=== PATIENT | female | born 1970 | race Caucasian/White ===

== ENCOUNTER → 2019-09-14 | Outpatient (CLI) | payer OTHER ==
[~2019-09-14] MED LIST: AMLO10TA8 PO; ASCO1CAP2 PO; CARV12.52 PO; CHOL10003 PO; CYCL-259 PO; FENO145T19 PO; GABA-827 PO; HYDR-3245 PO; IBUP-1222 PO; INSU100V14 SQ; MAGN420T PO; MELA10TA PO; VITA1CAP PO
[2019-09-14 11:46] LABS: MICROSCOPIC AUTO
[2019-09-14 11:47] LABS: BASOPHILS # (AUTO) 0.01 x10^3/uL (0-0.1); BASOPHILS % (AUTO) 0 % (0-1); EOSINOPHILS # (AUTO) 0.14 x10^3/uL (0-0.4); EOSINOPHILS % (AUTO) 3 % (1-7); LYMPHOCYTES # (AUTO) 1.79 x10^3/uL (1-3.4); LYMPHOCYTES % (AUTO) 35 % (22-44); MD NO; MEAN CORPUSCULAR HEMOGLOBIN 23.1 pg (27.0-34.8); MEAN CORPUSCULAR HGB CONC 31.7 g/dL (32.4-35.8); MEAN PLATELET VOLUME 7.9 fL (7.4-10.4); MONOCYTES # (AUTO) 0.45 x10^3/uL (0.2-0.8); MONOCYTES % (AUTO) 9 % (2-9); NEUTROPHILS # (AUTO) 2.69 x10^3/uL (1.8-6.8); NEUTROPHILS % (AUTO) 53 % (42-75); PLATELET COUNT 314 x10^3/uL (130-400); RED BLOOD COUNT 4.89 x10^6/uL (3.82-5.3); RED CELL DISTRIBUTION WIDTH 14.7 % (9.6-15.2)
[2019-09-14 11:54] LABS: ALBUMIN 3.2 g/dL (3.4-5.0); ANION GAP 8 mmol/L (5-15); CALCIUM 9.1 mg/dL (8.5-10.1); CHLORIDE 105 mmol/L (98-107)
[2019-09-14 11:59] LABS: ALANINE AMINOTRANSFERASE 37 U/L (12-78); ALKALINE PHOSPHATASE 43 U/L (45-117); BILIRUBIN,TOTAL 0.4 mg/dL (0.2-1.0); CREATININE 1.28 mg/dL (0.55-1.02); TOTAL PROTEIN 6.9 g/dL (6.4-8.2)
[2019-09-14 12:03] LABS: INTERNATIONAL NORMALIZED RATIO 0.91 (0.93-1.1); PROTHROMBIN TIME 9.6 Seconds (9.6-11.5)
== END | disposition home or self-care (01) ==
LOC: STAR 10:23
PROVIDERS: ATTEND Neurological Surgery
DX: Z01.810 Encounter for preprocedural cardiovascular examination (principal); Z01.811 Encounter for preprocedural respiratory examination; Z01.812 Encounter for preprocedural laboratory examination; M51.26 Other intervertebral disc displacement, lumbar region; M51.36 Other intervertebral disc degeneration, lumbar region; R79.1 Abnormal coagulation profile; R82.90 Unspecified abnormal findings in urine; R94.31 Abnormal electrocardiogram [ECG] [EKG]; M47.816 Spondylosis without myelopathy or radiculopathy, lumbar region
CPT/HCPCS: 36415; 71046; 72110; 80053; 81001; 85025; 85610; 85730; 93005

== ENCOUNTER 2019-09-24 09:56 | Inpatient (IN) | payer OTHER ==
[~2019-09-24] VITALS: Ht 180.3 cm; Wt 123.0 kg
[2019-09-24] MEDS ORDERED: PROPOFOL 50 ML ONE (10:34)
[2019-09-24] MEDS ORDERED: MIDAZOLAM 1 MG/ML, 2ML ONE (10:34)
[2019-09-24] MEDS ORDERED: FENTANYL PF 250 MCG/5ML ONE (10:34)
[2019-09-24] MEDS ORDERED: LACTATED RINGERS 1,000 ML IV SCH (10:40)
[2019-09-24 10:42] VITALS: BP 155/85
[2019-09-24] MEDS ORDERED: FURO20TA3 PO (10:47)
[2019-09-24] MEDS ORDERED: GABAPENTIN 300 MG CAPSULE PO ONE (11:00)
[2019-09-24] MEDS ORDERED: SCOPOLAMINE 1MG PATCH TD SCH (11:00)
[2019-09-24] MEDS ORDERED: CHLORHEXIDINE 15 ML UDC MM ONE (11:00)
[2019-09-24] MEDS ORDERED: ACETAMINOPHEN 500 MG TABLET PO ONE (11:00)
[2019-09-24] MEDS ORDERED: BUPIVACAINE/PF-EPI 0.5% 1:200K ONE (11:10)
[2019-09-24] MEDS ORDERED: BACITRACIN 50,000 UNIT ONE (11:10)
[2019-09-24 11:42] LABS: HCG UR SG 1.008 (1.003-1.030)
[2019-09-24] MEDS ORDERED: GLYCOPYRROLATE 0.2MG/1ML, 5ML ONE (11:49)
[2019-09-24] MEDS ORDERED: CEFAZOLIN 1,000 MG ONE (11:49)
[2019-09-24] MEDS ORDERED: DEXAMETHASONE 4 MG/ML, 1ML ONE (11:49)
[2019-09-24] MEDS ORDERED: ROCURONIUM 10 MG/ML,10ML ONE (11:49)
[2019-09-24] MEDS ORDERED: PHENYLEPHRINE 10 MG/ML ONE (11:49)
[2019-09-24] MEDS ORDERED: PROPOFOL 150 ML ONE (12:41)
[2019-09-24] MEDS ORDERED: KETOROLAC 30 MG/1 ML IV PRN (14:00)
[2019-09-24] MEDS ORDERED: OXYcodone 5 MG/5 ML ORAL.SOL UDC PO PRN (14:00)
[2019-09-24] MEDS ORDERED: MEPERIDINE/PF 25MG/0.5ML IVPush PRN (14:00)
[2019-09-24] MEDS ORDERED: HALOPERIDOL 5 MG/ML IV PRN (14:00)
[2019-09-24] MEDS ORDERED: DIPHENHYDRAMINE 50 MG/ML, 1ML IVPush PRN ×2 (14:00→14:30)
[2019-09-24] MEDS ORDERED: METHOCARBAMOL 1,000 MG in DEXTROSE 5% 100 ML IV PRN (14:00)
[2019-09-24] MEDS ORDERED: DIAZEPAM 5 MG/ML, 2ML ONE (14:12)
[2019-09-24] MEDS ORDERED: HYDROmorphone 1 MG/ML, 1ML INJ ONE (14:12)
[2019-09-24] MEDS ORDERED: FENTANYL PF 100 MCG/2ML ONE (14:12)
[2019-09-24] MEDS: FENTANYL PF 100 MCG/2ML IV PRN ×2 (14:13→14:24)
[2019-09-24] MEDS ORDERED: OXYcodone 5 MG/5 ML ORAL.SOL UDC ONE (14:13)
[2019-09-24] MEDS: DIAZEPAM 5 MG/ML, 2ML IVPush PRN ×2 (14:23→14:33)
[2019-09-24] MEDS ORDERED: LABETALOL 5MG/ML, 20ML IVPush PRN (14:30)
[2019-09-24] MEDS ORDERED: INSULIN ASPART SQ SCH (14:30)
[2019-09-24] MEDS: HYDROmorphone 1 MG/ML, 1ML INJ IVPush PRN ×2 (14:39→14:48)
[2019-09-24] MEDS ORDERED: LORazepam 2 MG/ML, 1ML ONE (14:58)
[2019-09-24] MEDS ORDERED: LORazepam 2 MG/ML, 1ML IVPush PRN (15:00)
[2019-09-24] MEDS: INSULIN REGULAR 100 UNITS/ML, 3ML VIAL SQ-INSULIN SCH ×2 (16:00→21:00)
[2019-09-24 16:37] VITALS: BP 162/93
[2019-09-24] MEDS: morphine SULFATE 10 MG/ML, 1ML IVPush PRN ×2 (16:54→20:27)
[2019-09-24] MEDS ORDERED: morphine SULFATE 10 MG/ML, 1ML ONE (17:17)
[2019-09-24] MEDS: GABAPENTIN 400 MG CAPSULE PO SCH ×2 (17:23→20:32)
[2019-09-24] MEDS: CYCLOBENZAPRINE 10 MG TABLET PO SCH ×2 (17:24→20:32)
[2019-09-24] MEDS ORDERED: OXYcodone IR 5MG TABLET PO PRN (17:30)
[2019-09-24] MEDS ORDERED: PROMETHAZINE 25 MG/ML, 1ML IM PRN (18:00)
[2019-09-24] MEDS ORDERED: MAGNESIUM HYDROXIDE 8%, 30ML UDC PO PRN (18:00)
[2019-09-24] MEDS ORDERED: SENNA/DOCUSATE TABLET PO PRN (18:00)
[2019-09-24] MEDS ORDERED: METHOCARBAMOL 750 MG TABLET PO PRN (18:00)
[2019-09-24] MEDS ORDERED: HOMEMED MC SCH (18:00)
[2019-09-24] MEDS: NS + 20MEQ KCL 1,000 ML IV SCH (18:08)
[2019-09-24] MEDS: HYDROcodone/APAP 10/325 MG TABLET PO PRN ×2 (18:14→22:53)
[2019-09-24 19:20] VITALS: BP 138/80
[2019-09-24] MEDS: CEFAZOLIN PMX 1GM/50ML 50 ML IVPB SCH (20:23)
[2019-09-24] MEDS: MAGNESIUM OXIDE 400 MG TABLET PO SCH (20:32)
[2019-09-24] MEDS: CARVEDILOL 12.5 MG TABLET PO SCH (20:32)
[2019-09-24] MEDS ORDERED: MELATONIN 5 MG TABLET PO SCH (21:00)
[2019-09-25 00:04] VITALS: BP 127/68
[2019-09-25] MEDS: morphine SULFATE 10 MG/ML, 1ML IVPush PRN ×3 (00:37→09:46)
[2019-09-25] MEDS: CEFAZOLIN PMX 1GM/50ML 50 ML IVPB SCH (03:56)
[2019-09-25] MEDS: HYDROcodone/APAP 10/325 MG TABLET PO PRN ×2 (03:57→07:55)
[2019-09-25] MEDS: NS + 20MEQ KCL 1,000 ML IV SCH ×3 (04:01→23:53)
[2019-09-25 05:14] VITALS: BP 124/77
[2019-09-25] MEDS ORDERED: VANCOMYCIN 1,000 MG ONE (06:15)
[2019-09-25] MEDS ORDERED: BACITRACIN 50,000 UNIT ONE (06:15)
[2019-09-25] MEDS ORDERED: BUPIVACAINE/PF-EPI 0.5% 1:200K ONE (06:15)
[2019-09-25] MEDS ORDERED: BUPIVACAINE 0.25% ONE (06:15)
[2019-09-25] MEDS: INSULIN REGULAR 100 UNITS/ML, 3ML VIAL SQ-INSULIN SCH ×4 (07:00→21:00)
[2019-09-25] MEDS: AMLODIPINE 10 MG TAB PO SCH (07:54)
[2019-09-25] MEDS: MAGNESIUM OXIDE 400 MG TABLET PO SCH (07:54)
[2019-09-25] MEDS: FENOFIBRATE 145 MG TABLET PO SCH (07:55)
[2019-09-25] MEDS: GABAPENTIN 400 MG CAPSULE PO SCH ×2 (07:55→15:54)
[2019-09-25] MEDS: CARVEDILOL 12.5 MG TABLET PO SCH (07:55)
[2019-09-25] MEDS: FUROSEMIDE 20 MG TABLET PO SCH (07:55)
[2019-09-25] MEDS: CYCLOBENZAPRINE 10 MG TABLET PO SCH ×3 (07:56→16:30)
[2019-09-25 08:32] VITALS: BP 148/85
[2019-09-25] MEDS ORDERED: ASCORBIC ACID PO SCH (09:00)
[2019-09-25] MEDS ORDERED: MULTIVITS,STRESS FORMULA 1 TABLET PO SCH (09:00)
[2019-09-25] MEDS ORDERED: COLLAGEN HYDR PO SCH (09:00)
[2019-09-25] MEDS ORDERED: CHOLECALCIFEROL 1,000 UNIT TABLET PO SCH (09:00)
[2019-09-25] MEDS ORDERED: [UNRECOGNIZED DRUG - OTHER] PO SCH (09:00)
[2019-09-25] MEDS ORDERED: FENTANYL PF 250 MCG/5ML ONE (11:25)
[2019-09-25] MEDS ORDERED: MIDAZOLAM 1 MG/ML, 2ML ONE (11:25)
[2019-09-25] MEDS ORDERED: PROPOFOL 50 ML ONE (11:27)
[2019-09-25] MEDS ORDERED: CHLORHEXIDINE 15 ML UDC MM ONE (12:00)
[2019-09-25] MEDS ORDERED: PHENYLEPHRINE 10 MG/ML ONE (13:28)
[2019-09-25] MEDS ORDERED: ROCURONIUM 10 MG/ML,10ML ONE (13:28)
[2019-09-25] MEDS ORDERED: SUCCINYLCHOLINE 20 MG/ML, 10ML ONE (13:28)
[2019-09-25] MEDS ORDERED: VANCOMYCIN 1,000 MG IM ONE (14:27)
[2019-09-25] MEDS ORDERED: BUPIVACAINE/PF-EPI 0.5% 1:200K INFIL ONE (14:27)
[2019-09-25] MEDS ORDERED: BACITRACIN 50,000 UNIT IRRIG ONE (14:27)
[2019-09-25] MEDS ORDERED: METOCLOPRAMIDE 5 MG/ML, 2ML IVPush PRN (14:30)
[2019-09-25] MEDS ORDERED: LABETALOL 5MG/ML, 20ML IV PRN ×2 (14:30→18:30)
[2019-09-25] MEDS ORDERED: hydrALAzine 20 MG/ML, 1ML IV PRN (14:30)
[2019-09-25] MEDS ORDERED: ALBUTEROL SULFATE 2.5 MG/3 ML NPPB PRN (14:30)
[2019-09-25] MEDS ORDERED: PROMETHAZINE 25 MG/ML, 1ML IVPush PRN (14:30)
[2019-09-25] MEDS ORDERED: ACETAMINOPHEN 325 MG TABLET PO PRN (14:30)
[2019-09-25] MEDS ORDERED: HYDROmorphone 1 MG/ML, 1ML INJ IVPush PRN ×2 (14:30→16:30)
[2019-09-25] MEDS ORDERED: LORazepam 2 MG/ML, 1ML IVPush PRN ×2 (14:30→16:30)
[2019-09-25] MEDS ORDERED: FENTANYL PF 100 MCG/2ML IV PRN (14:30)
[2019-09-25] MEDS ORDERED: MEPERIDINE/PF 25MG/0.5ML IVPush PRN ×2 (14:30→17:00)
[2019-09-25] MEDS ORDERED: METHOCARBAMOL 1,000 MG in DEXTROSE 5% 100 ML IV PRN ×2 (14:30→16:30)
[2019-09-25] MEDS ORDERED: OXYcodone 5 MG/5 ML ORAL.SOL UDC PO PRN ×2 (14:30→16:30)
[2019-09-25] MEDS ORDERED: BUPIVACAINE LIPOSOME/PF 10ML INFIL ONE (15:03)
[2019-09-25] MEDS ORDERED: DEXAMETHASONE 4 MG/ML, 1ML ONE (15:31)
[2019-09-25] MEDS ORDERED: CEFAZOLIN 1,000 MG ONE (15:31)
[2019-09-25] MEDS ORDERED: ONDANSETRON 2MG/ML, 2ML ONE (15:31)
[2019-09-25] MEDS ORDERED: PROPOFOL 10 MG/ML, 20ML ONE (15:31)
[2019-09-25] MEDS ORDERED: OXYcodone 5 MG/5 ML ORAL.SOL UDC ONE (16:09)
[2019-09-25] MEDS ORDERED: DIAZEPAM 5 MG/ML, 2ML ONE (16:09)
[2019-09-25] MEDS ORDERED: FENTANYL PF 100 MCG/2ML ONE (16:09)
[2019-09-25] MEDS ORDERED: MEPERIDINE/PF 25MG/ML,1ML ONE (16:13)
[2019-09-25] MEDS ORDERED: LORazepam 2 MG/ML, 1ML ONE (16:14)
[2019-09-25] MEDS: FENTANYL PF 100 MCG/2ML IV PRN ×4 (16:15→16:35)
[2019-09-25] MEDS ORDERED: CYCLOBENZAPRINE 10 MG TABLET ONE (16:58)
[2019-09-25 17:48] VITALS: BP 145/81
[2019-09-25] MEDS ORDERED: DIPHENHYDRAMINE 50 MG/ML, 1ML IVPush PRN (18:30)
[2019-09-25] MEDS ORDERED: BISACODYL 10 MG SUPP PR PRN (18:30)
[2019-09-25] MEDS ORDERED: DIPHENHYDRAMINE 50 MG/ML, 1ML IM PRN (18:30)
[2019-09-25] MEDS ORDERED: HYDROmorphone PCA 30 MG/30 ML IV PRN (18:30)
[2019-09-25] MEDS ORDERED: MAGNESIUM HYDROXIDE 8%, 30ML UDC PO PRN (18:30)
[2019-09-25] MEDS ORDERED: DIPHENHYDRAMINE 25 MG CAPSULE PO PRN (18:30)
[2019-09-25] MEDS ORDERED: PROMETHAZINE 25 MG/ML, 1ML IM PRN (18:30)
[2019-09-25 18:50] VITALS: BP 126/82
[2019-09-26] VITALS: BP 128/76
[2019-09-26] MEDS: GABAPENTIN 400 MG CAPSULE PO SCH ×4 (00:01→21:45)
[2019-09-26] MEDS: CARVEDILOL 12.5 MG TABLET PO SCH ×3 (00:05→21:44)
[2019-09-26] MEDS: CEFAZOLIN PMX 1GM/50ML 50 ML IVPB SCH ×2 (00:06→08:16)
[2019-09-26] MEDS: MAGNESIUM OXIDE 400 MG TABLET PO SCH ×3 (00:06→21:45)
[2019-09-26 04:21] VITALS: BP 106/70
[2019-09-26 06:18] LABS: BASOPHILS # (AUTO) 0.06 x10^3/uL (0-0.1); BASOPHILS % (AUTO) 1 % (0-1); EOSINOPHILS # (AUTO) 0.01 x10^3/uL (0-0.4); EOSINOPHILS % (AUTO) 0 % (1-7); LYMPHOCYTES % (AUTO) 17 % (22-44); MD NO; MEAN CORPUSCULAR HEMOGLOBIN 23.1 pg (27.0-34.8); MEAN CORPUSCULAR HGB CONC 31.2 g/dL (32.4-35.8); MEAN PLATELET VOLUME 8.1 fL (7.4-10.4); MONOCYTES # (AUTO) 1.24 x10^3/uL (0.2-0.8); MONOCYTES % (AUTO) 12 % (2-9); NEUTROPHILS # (AUTO) 7.35 x10^3/uL (1.8-6.8); NEUTROPHILS % (AUTO) 70 % (42-75); PLATELET COUNT 229 x10^3/uL (130-400); RED BLOOD COUNT 4.39 x10^6/uL (3.82-5.3); RED CELL DISTRIBUTION WIDTH 14.6 % (9.6-15.2)
[2019-09-26 06:30] LABS: ANION GAP 8 mmol/L (5-15); CALCIUM 8.5 mg/dL (8.5-10.1); CHLORIDE 104 mmol/L (98-107)
[2019-09-26 06:31] LABS: CREATININE 1.13 mg/dL (0.55-1.02)
[2019-09-26] MEDS: ENOXAPARIN 40 MG/0.4 ML SQ SCH (06:53)
[2019-09-26] MEDS: INSULIN REGULAR 100 UNITS/ML, 3ML VIAL SQ-INSULIN SCH ×4 (07:00→21:00)
[2019-09-26 07:20] VITALS: BP 134/76
[2019-09-26] MEDS: FUROSEMIDE 20 MG TABLET PO SCH (08:16)
[2019-09-26] MEDS: FENOFIBRATE 145 MG TABLET PO SCH (08:16)
[2019-09-26] MEDS: AMLODIPINE 10 MG TAB PO SCH (08:17)
[2019-09-26] MEDS: SENNA/DOCUSATE TABLET PO SCH (08:18)
[2019-09-26] MEDS: NS + 20MEQ KCL 1,000 ML IV SCH ×2 (09:00→19:00)
[2019-09-26] MEDS: HYDROmorphone 2MG TABLET PO PRN ×3 (13:29→21:45)
[2019-09-26 14:00] VITALS: BP 112/82
[2019-09-26] MEDS: METHOCARBAMOL 750 MG TABLET PO PRN (15:09)
[2019-09-26] MEDS: CEPHALEXIN 500 MG CAPSULE PO SCH ×2 (16:32→21:44)
[2019-09-26] MEDS ORDERED: HYDROcodone/APAP 10/325 MG TABLET ONE (18:58)
[2019-09-26] MEDS ORDERED: ACETAMINOPHEN 325 MG TABLET PO PRN (19:00)
[2019-09-26] MEDS: HYDROcodone/APAP 10/325 MG TABLET PO PRN ×2 (19:01→23:07)
[2019-09-26 21:03] VITALS: BP 103/58
[2019-09-27 01:20] VITALS: BP 111/62
[2019-09-27] MEDS: HYDROmorphone 2MG TABLET PO PRN ×2 (02:23→06:27)
[2019-09-27] MEDS: METHOCARBAMOL 750 MG TABLET PO PRN (02:29)
[2019-09-27] MEDS: HYDROcodone/APAP 10/325 MG TABLET PO PRN ×2 (04:26→08:40)
[2019-09-27] MEDS: FUROSEMIDE 20 MG TABLET PO SCH (04:54)
[2019-09-27] MEDS: ENOXAPARIN 40 MG/0.4 ML SQ SCH (04:55)
[2019-09-27] MEDS: CEPHALEXIN 500 MG CAPSULE PO SCH ×2 (04:55→10:28)
[2019-09-27] MEDS: NS + 20MEQ KCL 1,000 ML IV SCH (05:00)
[2019-09-27 05:05] LABS: ANION GAP 7 mmol/L (5-15); CALCIUM 7.5 mg/dL (8.5-10.1); CHLORIDE 103 mmol/L (98-107); CREATININE 1.32 mg/dL (0.55-1.02)
[2019-09-27 05:10] LABS: BASOPHILS # (AUTO) 0.04 x10^3/uL (0-0.1); BASOPHILS % (AUTO) 1 % (0-1); EOSINOPHILS # (AUTO) 0.09 x10^3/uL (0-0.4); EOSINOPHILS % (AUTO) 1 % (1-7); LYMPHOCYTES % (AUTO) 26 % (22-44); MD NO; MEAN CORPUSCULAR HEMOGLOBIN 23.3 pg (27.0-34.8); MEAN CORPUSCULAR HGB CONC 31.9 g/dL (32.4-35.8); MEAN PLATELET VOLUME 8.1 fL (7.4-10.4); MONOCYTES # (AUTO) 1.07 x10^3/uL (0.2-0.8); MONOCYTES % (AUTO) 11 % (2-9); NEUTROPHILS # (AUTO) 5.79 x10^3/uL (1.8-6.8); NEUTROPHILS % (AUTO) 62 % (42-75); PLATELET COUNT 199 x10^3/uL (130-400); RED BLOOD COUNT 3.82 x10^6/uL (3.82-5.3); RED CELL DISTRIBUTION WIDTH 14.5 % (9.6-15.2)
[2019-09-27] MEDS: INSULIN REGULAR 100 UNITS/ML, 3ML VIAL SQ-INSULIN SCH ×2 (06:27→10:28)
[2019-09-27 06:56] VITALS: BP 124/75
[2019-09-27] MEDS: AMLODIPINE 10 MG TAB PO SCH (08:39)
[2019-09-27] MEDS: MAGNESIUM OXIDE 400 MG TABLET PO SCH (08:39)
[2019-09-27] MEDS: FENOFIBRATE 145 MG TABLET PO SCH (08:39)
[2019-09-27] MEDS: CARVEDILOL 12.5 MG TABLET PO SCH (08:39)
[2019-09-27] MEDS: GABAPENTIN 400 MG CAPSULE PO SCH (08:39)
[2019-09-27] MEDS: SENNA/DOCUSATE TABLET PO SCH (08:40)
== END 2019-09-27 12:33 | disposition home health service (06) | DRG 453 ==
LOC: ORIP 09:56 → 4NE 16:44
PROVIDERS: ADMIT Neurological Surgery; ATTEND Neurological Surgery
PROC: 0SB20ZZ Excision of Lumbar Vertebral Disc, Open Approach (ICD-10-PCS; 2019-09-24)
PROC: 01NB0ZZ Release Lumbar Nerve, Open Approach (ICD-10-PCS; 2019-09-24)
PROC: 4A11X4G Monitoring of Peripheral Nervous Electrical Activity, Intraoperative, External Approach (ICD-10-PCS; 2019-09-24)
PROC: 8E0W0CZ Robotic Assisted Procedure of Trunk Region, Open Approach (ICD-10-PCS; 2019-09-24)
PROC: 0SG00A0 Fusion of Lumbar Vertebral Joint with Interbody Fusion Device, Anterior Approach, Anterior Column, Open Approach (ICD-10-PCS; principal; 2019-09-24 13:00)
PROC: 0SG0071 Fusion of Lumbar Vertebral Joint with Autologous Tissue Substitute, Posterior Approach, Posterior Column, Open Approach (ICD-10-PCS; 2019-09-25)
DX: M48.062 Spinal stenosis, lumbar region with neurogenic claudication (principal); R53.2 Functional quadriplegia; G95.20 Unspecified cord compression; M51.16 Intervertebral disc disorders with radiculopathy, lumbar region; I10 Essential (primary) hypertension; E78.5 Hyperlipidemia, unspecified; E11.9 Type 2 diabetes mellitus without complications; R20.8 Other disturbances of skin sensation; M40.56 Lordosis, unspecified, lumbar region; Z86.73 Personal history of transient ischemic attack (TIA), and cerebral infarction without residual deficits; Z87.891 Personal history of nicotine dependence; Z83.3 Family history of diabetes mellitus; Z20.828 Contact with and (suspected) exposure to other viral communicable diseases; Z91.041 Radiographic dye allergy status; Z88.8 Allergy status to other drugs, medicaments and biological substances; Z91.018 Allergy to other foods; Z79.899 Other long term (current) drug therapy; Z79.84 Long term (current) use of oral hypoglycemic drugs
CPT/HCPCS: 36415; 72100; 72131; 76000; 80048; 81025; 82962; 85025; 87635; 95938; 95941; C1713; G0378; J0690; J1100; J1170; J1650; J2175; J2250; J2405; J2704; J3010; J3360; J3370; J3480; J3490; C1760; C1763; C1769; C1889; J0330; J2060; J2270; J2370; J2800; J7120